=== PATIENT | male | born 1985 | race Caucasian/White ===

== ENCOUNTER 2018-07-15 19:55 | Inpatient (IN) | payer BC ==
[~2018-07-15] VITALS: Ht 180.3 cm; Wt 168.7 kg
[2018-07-15 19:56] VITALS: BP 139/91
[2018-07-15] MEDS ORDERED: IBUPROFEN 200200 M1 PO (20:00)
[2018-07-15] MEDS ORDERED: LAXATIVE (20:00)
[2018-07-15] MEDS ORDERED: [UNRECOGNIZED DRUG - REMARK] (20:01)
[2018-07-15 20:18] LABS: ICTOTEST (BILI CONFIRMATORY) Negative (Negative); URINE BILIRUBIN NEGATIVE (Negative); URINE BLOOD NEGATIVE (Negative); URINE CLARITY CLEAR; URINE COLOR YELLOW; URINE GLUCOSE-RANDOM* NEGATIVE (Negative); URINE KETONES TRACE (Negative); URINE LEUKOCYTES-REFLEX TRACE (Negative); URINE NITRITE-REFLEX NEGATIVE (Negative); URINE PROTEIN (DIPSTICK) TRACE (Negative); URINE SPECIFIC GRAVITY > 1.030 (1.005-1.035)
[2018-07-15 20:56] LABS: ABSOLUTE NEUTROPHILS 12.4 thou/uL (1.4-8.2); BASOPHILS 0.7 % (0.0-2.0); EOSINOPHILS 3.4 % (0.0-3.0); HEMATOCRIT 44.4 % (42.0-52.0); LYMPHOCYTES 12.9 % (24.0-44.0); MCH 28.4 pg (26.0-34.0); MCHC 33.8 g/dL (28.0-37.0); MCV 84.1 fL (80.0-100.0); MONOCYTES 8.6 % (1.0-8.0); PLATELET COUNT 285 thou/uL (150-400); POLYS 74.4 % (36.0-66.0); RBC 5.28 mil/uL (4.50-6.00); RDW 14.3 % (10.5-14.5); WBC 16.6 thou/uL (4.0-11.0)
[2018-07-15 21:07] LABS: CALCIUM 8.9 mg/dL (8.5-10.1); POTASSIUM 3.4 mmol/L (3.5-5.1)
[2018-07-15 21:14] LABS: ALBUMIN 3.2 g/dL (3.4-5.0); TOTAL BILIRUBIN 0.6 mg/dL (<0.1-1.0); TOTAL PROTEIN 8.2 g/dL (6.4-8.2)
--- NOTE | 2018-07-15 21:44 | NUR ---
PATIENT PLACED ON STANDING SCALE PER REQUEST OF CT. WEIGHT VERIFIED AT 371. PATIENT TO CT AT THIS TIME
--- NOTE | 2018-07-15 23:09 | NUR ---
INPATIENT WATCHMAKER APPRENTICE AT BEDSIDE DISCUSSING PLAN OF CARE. PATIENT ANXIOUS AND RESTLESS REGARDING THE IDEA OF IV PAIN MEDS. EDUCATION PROVIDED BY WATCHMAKER APPRENTICE, MYSELF AND FATHER. WILL CONTINUE TO MONITOR
--- NOTE | 2018-07-15 23:20 | NUR ---
LAB AT BEDSIDE FOR REPEAT BLOOD DRAW
--- NOTE | 2018-07-15 23:29 | NUR ---
PATIENT UP AMBULATING TO RESTROOM
[2018-07-15 23:30] VITALS: BP 133/81
[2018-07-16] VITALS (8 sets, daily range): BP systolic 112–139; BP diastolic 59–85
--- NOTE | 2018-07-16 00:31 | NUR ---
PATIENT EDUCATED AND PREPARED TO BE TRANSFERRED TO ROOM 208
--- NOTE | 2018-07-16 02:22 | NUR ---
PATIENT WAS ADMITTED TO THE FLOOR FROM ED. FAMILY MEMBER AT THE BEDSIDE. PATIENT WAS ASSESSED AND MEDS WERE GIVEN. HOURLY ROUNDING WAS DONE AND PATIENT DID APPER TO BE SLEEPING. 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 HE IS INDEPENDENT IN HIS ROOM. BED IS IN A LOW AND LOCKED POSITION.
[2018-07-16 04:27] LABS: HEMOGLOBIN 13.6 gm/dL (14.0-18.0); MCH 28.3 pg (26.0-34.0); MCV 83.4 fL (80.0-100.0); RBC 4.79 mil/uL (4.50-6.00); RDW 14.3 % (10.5-14.5); WBC 13.8 thou/uL (4.0-11.0)
[2018-07-16 04:39] LABS: CALCIUM 8.5 mg/dL (8.5-10.1); CREATININE 0.8 mg/dL (0.7-1.3); POTASSIUM 3.4 mmol/L (3.5-5.1)
--- NOTE | 2018-07-16 19:13 | NUR ---
ASSESSMENT COMPLETED AND DOCUMENTED. NO S/SX OF CARDIAC OR RESP DISTRESS. PT DID NOT WANT TO TAKE MORPHINE. PT TOLERATED CLEAR LIQUID DIET FOR LUNCH AND DINNER. PT RESTED WELL. NO COMPLAINTS VOICED. WILL CONTINUE TO MONITOR PER ORDERS.
[2018-07-17 00:45] VITALS: BP 128/79
[2018-07-17 03:30] LABS: HEMATOCRIT 39.9 % (42.0-52.0); HEMOGLOBIN 13.3 gm/dL (14.0-18.0); MCH 28.2 pg (26.0-34.0); MCHC 33.4 g/dL (28.0-37.0); MCV 84.3 fL (80.0-100.0); RBC 4.73 mil/uL (4.50-6.00)
[2018-07-17 03:52] LABS: CALCIUM 8.4 mg/dL (8.5-10.1); CREATININE 0.7 mg/dL (0.7-1.3); POTASSIUM 3.6 mmol/L (3.5-5.1)
[2018-07-17 04:45] VITALS: BP 134/80
--- NOTE | 2018-07-17 06:15 | NUR ---
ASSUME CARE 1900. PT/VITALS STABLE. INTERMITTENT ABDO PAIN. DENIES PAIN MEDS. UP AD ALIX. ASSESSMENT CHARTED. PROGRESSING WELL WITH POC. PLAN IS POSSIBLE DISCHARGE TODAY. WILL CONTINUE TO FOLLOW WITH POC
[2018-07-17 07:57] VITALS: BP 135/83
[2018-07-17 15:00] VITALS: BP 127/83
--- NOTE | 2018-07-17 15:59 | NUR ---
patient admits with diverticulitis. Sp with phys and nurisng patient employed, has health insurance. 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 Anticipate dc home tomorrow after cont to advance diet. casemgt avail if needs arise.
--- NOTE | 2018-07-17 16:07 | NUR ---
ASSESSMENT CHARTED - MEDS PER SEP - NO CO'S OF NAUSEA. PT STATES HE DOES HAVE A LITTLE ABDO PAIN DOES NOT WANT ANYTHING FOR IT. IV INFILTRATED THIS AM - ABLE TO LEAVE OUT PER DOCTOR - MEDS CHANGED TO PO. PT ADVANCED TO FULL LIQUID DIET FOR LUNCH - JERRELL WELL - WILL ADVANCE TO REG DIET FOR DINNER IF JERRELL WELL AND PAIN REMAINS CONTROLLED WILL BE ABLE TO D/C IN THE AM. NO CO'S AT THE PRESENT TIME.
[2018-07-17 20:15] VITALS: BP 126/72
[2018-07-18 04:45] VITALS: BP 133/78
--- NOTE | 2018-07-18 05:31 | NUR ---
ASSESSMENTS CHARTED. PATIENT RESTING IN ROOM DURING SHIFT. PATIENT HAD CONSTANT ABDOMINAL PAIN, BUT DID NOT WANT ANY PAIN MEDS. PLAN TO GO HOME DURING DAY.
[2018-07-18 07:50] VITALS: BP 156/106
[2018-07-18] MEDS ORDERED: METRONIDAZOLE500 M4 PO ×2 (12:15→12:16)
[2018-07-18] MEDS ORDERED: PEPCID20 MG PO ×2 (12:15→12:16)
[2018-07-18] MEDS ORDERED: AUGMENTIN 500-1 EACH PO ×2 (12:15→12:16)
[2018-07-18 12:29] VITALS: BP 156/106
--- NOTE | 2018-07-18 19:42 | NUR ---
ASSUMED CARE OF PATIENT AT 0700. PT/VITALS STABLE. COMPLAINS OF GENERALIZED LOWER ABDOMINAL PAIN, 3-4, BUT DOES NOT WANT ANY PAIN MEDICATIONS. ASSESSMENT CHARTED. PATIENT'S DIET WAS ADVANCED TO A SOFT FIBER RESTRICTED WHICH HE ATE WITHOUT ANY DIFFICULTY. WORK NOTE WAS GIVEN TO THE PATIENT TO RETURN TO WORK 07/24/18, PER DR. RODRIGUEZ. COPY OF NOTE IS IN THE CHART. THIS NURSE HAD A CONVERSATION WITH THE PATIENT ABOUT WHAT FOODS TO AVOID AND SIGNS/SYMPTOMS OF POSSIBLE RECURRING DIVERTICULITIS. THE PATIENT WAS WHEELED OUT TO THE MAIN ENTRANCE IN A WHEEL CHAIR AND DRIVEN HOME BY HIS FATHER. HE STATED THAT HE HAS ALL OF HIS BELONGINGS AND FEELS MUCH BETTER THAN HE DID ON ADMISSION.
== END 2018-07-18 13:08 | disposition home or self-care (01) | DRG 872 ==
LOC: ER 19:55 → EROBS 22:59 → 2N 22:59 → ENTRNSPT 07-18 12:51 → EDTRNSPTSTS 07-18 12:57 → 2N 07-18 13:08
PROVIDERS: Nurse Practitioner Family; Physician Assistant; ADMIT Hospitalist
DX: A41.9 Sepsis, unspecified organism (principal); K57.20 Diverticulitis of large intestine with perforation and abscess without bleeding; I10 Essential (primary) hypertension; F41.9 Anxiety disorder, unspecified; F17.210 Nicotine dependence, cigarettes, uncomplicated; E66.01 Morbid (severe) obesity due to excess calories; K76.0 Fatty (change of) liver, not elsewhere classified; Z79.899 Other long term (current) drug therapy; Z80.0 Family history of malignant neoplasm of digestive organs; Z68.42 Body mass index [BMI] 45.0-49.9, adult
CPT/HCPCS: 10797

== ENCOUNTER 2018-11-07 13:20 | Inpatient (IN) | payer BC ==
[~2018-11-07] VITALS: Ht 182.9 cm; Wt 163.3 kg
[2018-11-07 13:20] VITALS: BP 119/81
[~2018-11-07 13:20] MED LIST: AUGMENTIN 500-1 EACH PO; IBUPROFEN 200200 M1 PO; LAXATIVE; LISINOPRIL-HCT1 EACH PO; METRONIDAZOLE500 M4 PO; PEPCID20 MG PO; [UNRECOGNIZED DRUG - REMARK]
[2018-11-07 13:39] LABS: URINE BLOOD NEGATIVE (Negative); URINE CLARITY CLEAR; URINE COLOR YELLOW; URINE GLUCOSE-RANDOM* NEGATIVE (Negative); URINE KETONES TRACE (Negative); URINE LEUKOCYTES-REFLEX NEGATIVE (Negative); URINE NITRITE-REFLEX NEGATIVE (Negative); URINE PROTEIN (DIPSTICK) 2+ (Negative); URINE SPECIFIC GRAVITY >= 1.030 (1.005-1.035); URINE UROBILINOGEN 0.2 E.U./dl (0.2-1.0)
[2018-11-07 13:49] LABS: ABSOLUTE NEUTROPHILS 8.4 thou/uL (1.4-8.2); HEMATOCRIT 46.3 % (42.0-52.0); HEMOGLOBIN 15.7 gm/dL (14.0-18.0); MCH 28.7 pg (26.0-34.0); MCHC 33.8 g/dL (28.0-37.0); MCV 84.9 fL (80.0-100.0); MONOCYTES 6.4 % (1.0-8.0); PLATELET COUNT 268 thou/uL (150-400); POLYS 67.6 % (36.0-66.0); RBC 5.45 mil/uL (4.50-6.00); RDW 14.5 % (10.5-14.5); WBC 12.4 thou/uL (4.0-11.0)
[2018-11-07 14:00] LABS: CALCIUM 9.5 mg/dL (8.5-10.1); POTASSIUM 3.9 mmol/L (3.5-5.1)
[2018-11-07 14:07] LABS: ALBUMIN 3.7 g/dL (3.4-5.0); TOTAL BILIRUBIN 0.4 mg/dL (<0.1-1.0); TOTAL PROTEIN 8.2 g/dL (6.4-8.2)
[2018-11-07 14:08] LABS: ICTOTEST (BILI CONFIRMATORY) Negative (Negative); URINE BILIRUBIN NEGATIVE (Negative)
[2018-11-07 15:13] VITALS: BP 142/75
[2018-11-07 16:54] VITALS: BP 123/76
[2018-11-07] MEDS ORDERED: WAL-PROFEN200 MG (16:59)
--- NOTE | 2018-11-07 18:30 | NUR ---
PT RECIEVED FROM THE ER AT 1600 ALERT AND IN NO ACUTE DISTRESS. PT W/ REPEAT DIVERTICULITIS FROM LAST JUL. DR. CLARK CONSULTED AND SAW PT. PT ON CLEARS BUT MAY ADVANCE IF NO PAIN.
[2018-11-07 19:45] VITALS: BP 128/81
[2018-11-08 03:50] VITALS: BP 127/76
--- NOTE | 2018-11-08 04:20 | NUR ---
Assumed care of pt at 1900. Pt alert and oriented x4. Up ad subha. Pain controlled with prn pain meds. IVF and IV antibiotics infusing. 1 BM overnight. Call light within reach. Will continue to monitor.
[2018-11-08 06:05] LABS: HEMATOCRIT 41.9 % (42.0-52.0); MCH 28.9 pg (26.0-34.0); MCHC 33.3 g/dL (28.0-37.0); MCV 86.6 fL (80.0-100.0); RBC 4.84 mil/uL (4.50-6.00); RDW 14.7 % (10.5-14.5); WBC 9.5 thou/uL (4.0-11.0)
[2018-11-08 08:14] VITALS: BP 134/77
--- NOTE | 2018-11-08 15:52 | NUR ---
Assumed pt care at 7am.Pt in bed most of the time and able to repositioned self as needed.Assessment completed.vss.Pt c/o generalized abdominal pain and pain med given as ordered.Dr Richey here,order noted.Family in room most of the time today.Will continiue to monitor.
[2018-11-08 17:28] VITALS: BP 138/75
[2018-11-08 19:15] VITALS: BP 149/94
[2018-11-09 04:03] VITALS: BP 145/92
[2018-11-09 07:40] VITALS: BP 133/89
--- NOTE | 2018-11-09 08:00 | NUR ---
ASSUMED CARE @ 19:15. A&OX4 REPORTS LAST BM ON SUNDAY. FSBS 89, NO S/S GIVEN. VS STABLE .DENIED NEED FOR PAIN MEDS. WILL CONTINUE TO MONITOR.
[2018-11-09 15:30] VITALS: BP 135/79
--- NOTE | 2018-11-09 16:08 | NUR ---
PT A&OX4, AMBULATES SELF. IV INTACT IN L FA. TOLERATED SOFT DIET FOR LUNCH WELL. DENIES N/V, DID HAVE L LOWER QUAD PAIN, RECIEVED PO PAIN MED. WILL CONT POC.
[2018-11-09 19:38] VITALS: BP 137/75
[2018-11-10 04:29] VITALS: BP 145/90
--- NOTE | 2018-11-10 04:43 | NUR ---
PT AMBULATING TO BATHROOM INDEPENDENTLY AND IS TOLERATING WELL. LORTAB PROVIDING PAIN RELIEF. DENIES NAUSEA. PLAN IS FOR DISCHARGE HOME 11/10. RESTING COMFORTABLY. NO NEEDS VOICED. CALL LIGHT WITHIN REACH. WILL CONTINUE TO PROVIDE FREQUENT OBSERVATION.
[2018-11-10 06:55] LABS: HEMATOCRIT 44.7 % (42.0-52.0); HEMOGLOBIN 14.5 gm/dL (14.0-18.0); MCH 28.5 pg (26.0-34.0); MCHC 32.3 g/dL (28.0-37.0); MCV 88.2 fL (80.0-100.0); RBC 5.07 mil/uL (4.50-6.00); RDW 14.3 % (10.5-14.5); WBC 9.2 thou/uL (4.0-11.0)
[2018-11-10 07:12] VITALS: BP 136/92
[2018-11-10] MEDS ORDERED: MIRALAX17 GM PO (09:49)
[2018-11-10] MEDS ORDERED: AUGMENTIN 875-1 EACH PO (09:49)
[2018-11-10] MEDS ORDERED: HYDROCODON-ACE1 EAC7 PO (09:49)
[2018-11-10] MEDS ORDERED: METFORMIN HCL500 MG PO (09:52)
[2018-11-10 11:21] VITALS: BP 136/92
[2018-11-10 11:25] VITALS: BP 136/92
--- NOTE | 2018-11-10 11:48 | NUR ---
DC ORDERS RECIEVED, IV REMOVED FROM L HAND, F/U APPOINT. AND SCRIPTS REVIEWED WITH PT, PT AND FATHER WALKED THEMSELVES OUT TO MAIN ENTRANCE.
== END 2018-11-10 12:23 | disposition home or self-care (01) | DRG 392 ==
LOC: ER 13:20 → EROBS 15:12 → 4E 15:12
PROVIDERS: Nurse Practitioner Family; ADMIT Hospitalist
DX: K57.32 Diverticulitis of large intestine without perforation or abscess without bleeding (principal); Z68.42 Body mass index [BMI] 45.0-49.9, adult; I10 Essential (primary) hypertension; K21.9 Gastro-esophageal reflux disease without esophagitis; F41.9 Anxiety disorder, unspecified; F17.210 Nicotine dependence, cigarettes, uncomplicated; E74.39 Other disorders of intestinal carbohydrate absorption; R73.9 Hyperglycemia, unspecified; E66.01 Morbid (severe) obesity due to excess calories; Z79.899 Other long term (current) drug therapy; Z88.1 Allergy status to other antibiotic agents; Z80.0 Family history of malignant neoplasm of digestive organs
CPT/HCPCS: 10084

== ENCOUNTER 2019-06-20 02:09 | Inpatient (IN) | payer BC ==
[2019-06-20] VITALS (8 sets, daily range): BP systolic 97–153; BP diastolic 54–81
[~2019-06-20] VITALS: Ht 180.3 cm; Wt 167.8 kg
[~2019-06-20 02:09] MED LIST changes: +AUGMENTIN 875-1 EACH PO; +HYDROCODON-ACE1 EAC7 PO; +METFORMIN HCL500 MG PO; +MIRALAX17 GM PO; +WAL-PROFEN200 MG
[2019-06-20 02:37] LABS: ABSOLUTE NEUTROPHILS 13.5 thou/uL (1.4-8.2); BASOPHILS 1.3 % (0.0-2.0); EOSINOPHILS 0.4 % (0.0-3.0); HEMATOCRIT 40.6 % (42.0-52.0); HEMOGLOBIN 13.7 gm/dL (14.0-18.0); LYMPHOCYTES 11.2 % (24.0-44.0); MCH 28.8 pg (26.0-34.0); MCHC 33.8 g/dL (28.0-37.0); MCV 85.4 fL (80.0-100.0); MONOCYTES 9.4 % (1.0-8.0); PLATELET COUNT 285 thou/uL (150-400); POLYS 77.7 % (36.0-66.0); RBC 4.75 mil/uL (4.50-6.00); RDW 13.5 % (10.5-14.5); WBC 17.3 thou/uL (4.0-11.0)
[2019-06-20 02:50] LABS: CALCIUM 9.1 mg/dL (8.5-10.1); CREATININE 1.1 mg/dL (0.7-1.3); POTASSIUM 3.7 mmol/L (3.5-5.1)
[2019-06-20 02:56] LABS: ALBUMIN 3.7 g/dL (3.4-5.0); TOTAL BILIRUBIN 0.5 mg/dL (<0.1-1.0)
[2019-06-20 03:26] LABS: URINE BILIRUBIN NEGATIVE (Negative); URINE BLOOD NEGATIVE (Negative); URINE CLARITY SL CLOUDY; URINE COLOR YELLOW; URINE GLUCOSE-RANDOM* NEGATIVE (Negative); URINE KETONES NEGATIVE (Negative); URINE LEUKOCYTES-REFLEX 1+ (Negative); URINE NITRITE-REFLEX NEGATIVE (Negative); URINE PROTEIN (DIPSTICK) NEGATIVE (Negative); URINE SPECIFIC GRAVITY >= 1.030 (1.005-1.035); URINE UROBILINOGEN 0.2 E.U./dl (0.2-1.0)
[2019-06-20 03:34] LABS: BACTERIA-REFLEX >30 Many /HPF (None Seen); CASTS None Seen /LPF (None Seen); CRYSTALS None Seen /LPF (None Seen); MUCUS 0-3 Light strn/LPF (None Seen); SQUAMOUS 0-3 Few /LPF (0-3); URINE RBC 0-2 Rare /HPF (0-2)
--- NOTE | 2019-06-20 11:00 | NUR ---
Received awake on bed. Due medications given as prescribed. On nothing per orem, ice chips offered. Vital signs stable. On room air. Up ad subha. With SL at L FA- intact. Admission history and education done by maintenance supervisor 2nd shift, continued pt's admission assessment- charted. Pt seen by INDUSTRIAL COFFEE GRINDER Elzbieta. Pt can have clear liquids- broth and apple juice given, tolerated well, no nauea and no vomiting noted. Complained of abdominal pain, due PRN pain meds given as prescribed. IVF of NS at 100cc/hr, started on his L FA. With surgery consult to Dr Rivera- US called. Assisted in ADLs.
--- NOTE | 2019-06-20 14:58 | NUR ---
PT ADMITTED WITH DIVERTICULITIS, SPSIS, AND UTI. CM SPOKE WITH PHYSICAIN AND NURSING. PT IS EMPLOYED AND INSURED. 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 CARE TEAM INDICATE FOLLOW UP FOR PITPATIENT COLONOSCOPY AND PARTIAL COLECTOMY. CM TO FOLLOW SHOULD ANY NEEDS ARISE.
--- NOTE | 2019-06-21 05:00 | NUR ---
PATIENT AOX4 MAKES NEEDS KNOWN. PATIENT IS UP AT ALIX. PATIENT CALM AND COOPERATIVE WITH MEDS AND CARE. PAIN CONTROLLED THIS SHIFT.PATIENT ON CLEAR LIQUIDS AND TOLERATED WELL. PATIENT IN BED ASLEEP AT THIS TIME BREATHING REGULAR AND UNLABOURED.
[2019-06-21 08:03] VITALS: BP 116/75
--- NOTE | 2019-06-21 11:53 | NUR ---
Received awake on bed. Due medications given as prescribed. On room air. Vital signs stable. Up ad subha, independent with ADLs. Able to have a bowel movement this AM. On clear liquids, tolerating well; no nausea and no vomiting noted. With NS at 100cc/hr, infusing well at L FA. Pt seen by Dr Hernandez this AM- pt requested to have regular diet, order placed and Dr Hernandez informed.
[2019-06-21 14:16] VITALS: BP 137/71
[2019-06-21 19:00] VITALS: BP 157/73
--- NOTE | 2019-06-22 03:49 | NUR ---
PATIENT AOX4 MAKES NEEDS KNOWN. PATIENT IS UP AT ALIX. PAIN CONTROLLED THIS SHIFT. PATIENT ATE REGULAR FOOD THIS SHIFT AND TOLERATED WELL. PATIENT IN BED ASLEEP AT THIS TIME BREATHING REGULAR AND UNLABOURED.
[2019-06-22 05:15] LABS: HEMATOCRIT 38.1 % (42.0-52.0); HEMOGLOBIN 12.5 gm/dL (14.0-18.0); MCH 28.6 pg (26.0-34.0); MCHC 32.7 g/dL (28.0-37.0); MCV 87.4 fL (80.0-100.0); RBC 4.36 mil/uL (4.50-6.00); RDW 13.4 % (10.5-14.5); WBC 8.7 thou/uL (4.0-11.0)
[2019-06-22 08:00] VITALS: BP 132/80
[2019-06-22] MEDS ORDERED: AUGMENTIN 875-1 EACH PO (08:11)
[2019-06-22] MEDS ORDERED: NORCO 5-325 TA1 EAC1 PO (08:11)
[2019-06-22 10:27] VITALS: BP 132/80
--- NOTE | 2019-06-22 10:55 | NUR ---
Assumed patient care at 0715. Patient's vital signs have been stable, he denies pain. He is currently completely his last dose of IV Antibiotic without adverse reactions. Discharge Instructions and medication education provided to patient; he verbalizes an understanding. Patient is currently waiting on a ride home from a friend.
--- NOTE | 2019-06-22 11:35 | NUR ---
Patient Discharged at this time. He declined the offer to be pushed in a wheelchair, ambulated with PRESS HAND SUPERVISOR to Main Entrance. Patient left with his cell phone and clothing that he arrived in.
== END 2019-06-22 12:00 | disposition home or self-care (01) | DRG 872 ==
LOC: ER 02:09 → 4W 05:09 → EROBS 05:09 → 4W 06:15
PROVIDERS: Emergency Medicine; Hospitalist; ADMIT Hospitalist
DX: A41.9 Sepsis, unspecified organism (principal); N39.0 Urinary tract infection, site not specified; K57.32 Diverticulitis of large intestine without perforation or abscess without bleeding; I10 Essential (primary) hypertension; F41.9 Anxiety disorder, unspecified; K21.9 Gastro-esophageal reflux disease without esophagitis; E66.01 Morbid (severe) obesity due to excess calories; Z71.6 Tobacco abuse counseling; Z80.0 Family history of malignant neoplasm of digestive organs; Z68.43 Body mass index [BMI] 50.0-59.9, adult; Z88.1 Allergy status to other antibiotic agents; Z80.51 Family history of malignant neoplasm of kidney; Z79.899 Other long term (current) drug therapy
CPT/HCPCS: 10040

== ENCOUNTER 2020-01-06 19:00 | Emergency (ER) | payer BC ==
[~2020-01-06] VITALS: Ht 182.9 cm; Wt 171.5 kg
[~2020-01-06 19:00] MED LIST changes: +NORCO 5-325 TA1 EAC1 PO
[2020-01-06] MEDS ORDERED: NORCO 5-325 TA1 EAC1 PO (20:43)
[2020-01-06] MEDS ORDERED: LIDOCAINE PAIN1 EACH TRANSDERM (20:43)
[2020-01-06 21:02] VITALS: BP 152/92
--- NOTE | 2020-01-07 07:44 | EKG ---
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
== END 2020-01-06 21:03 | disposition home or self-care (01) ==
LOC: ER 19:00
DX: S20.212A Contusion of left front wall of thorax, initial encounter (principal); I10 Essential (primary) hypertension; K21.9 Gastro-esophageal reflux disease without esophagitis; F41.9 Anxiety disorder, unspecified; F17.210 Nicotine dependence, cigarettes, uncomplicated; Z79.899 Other long term (current) drug therapy; Z88.1 Allergy status to other antibiotic agents; X50.1XXA Overexertion from prolonged static or awkward postures, initial encounter; Y93.89 Activity, other specified; Y92.098 Other place in other non-institutional residence as the place of occurrence of the external cause; Y99.8 Other external cause status

== ENCOUNTER 2020-02-27 13:50 | Emergency (ER) | payer BC ==
[~2020-02-27] VITALS: Ht 180.3 cm; Wt 171.5 kg
[~2020-02-27 13:50] MED LIST changes: +LIDOCAINE PAIN1 EACH TRANSDERM
[2020-02-27 15:05] LABS: ABSOLUTE NEUTROPHILS 8.5 thou/uL (1.4-8.2); EOSINOPHILS 1.5 % (0.0-3.0); HEMOGLOBIN 13.7 gm/dL (14.0-18.0); LYMPHOCYTES 13.6 % (24.0-44.0); MCH 28.4 pg (26.0-34.0); MCHC 33.4 g/dL (28.0-37.0); MONOCYTES 9.2 % (1.0-8.0); PLATELET COUNT 265 thou/uL (150-400); POLYS 74.7 % (36.0-66.0); RBC 4.82 mil/uL (4.50-6.00); RDW 14.4 % (10.5-14.5); WBC 11.4 thou/uL (4.0-11.0)
[2020-02-27 15:23] LABS: CALCIUM 8.9 mg/dL (8.5-10.1); CREATININE 0.9 mg/dL (0.7-1.3); POTASSIUM 3.9 mmol/L (3.5-5.1)
[2020-02-27 15:29] LABS: ALBUMIN 3.6 g/dL (3.4-5.0); TOTAL BILIRUBIN 0.2 mg/dL (0.2-1.0); TOTAL PROTEIN 7.6 g/dL (6.4-8.2)
[2020-02-27 16:07] LABS: URINE BILIRUBIN NEGATIVE (Negative); URINE BLOOD NEGATIVE (Negative); URINE CLARITY CLEAR; URINE COLOR YELLOW; URINE GLUCOSE-RANDOM* NEGATIVE (Negative); URINE KETONES NEGATIVE (Negative); URINE LEUKOCYTES-REFLEX NEGATIVE (Negative); URINE NITRITE-REFLEX NEGATIVE (Negative); URINE PROTEIN (DIPSTICK) NEGATIVE (Negative); URINE SPECIFIC GRAVITY >= 1.030 (1.005-1.035); URINE UROBILINOGEN 0.2 E.U./dl (0.2-1.0)
[2020-02-27] MEDS ORDERED: NORCO 5-325 TA1 EAC2 PO (18:00)
[2020-02-27] MEDS ORDERED: ZOFRAN ODT4 MG DISSOLVE (18:00)
[2020-02-27] MEDS ORDERED: AUGMENTIN 875-1 EACH PO (18:00)
[2020-02-27 18:23] VITALS: BP 127/64
== END 2020-02-27 18:25 | disposition home or self-care (01) ==
LOC: ER 13:50
PROVIDERS: Emergency Medicine; Physician Assistant
DX: K57.32 Diverticulitis of large intestine without perforation or abscess without bleeding (principal); R10.84 Generalized abdominal pain; F17.210 Nicotine dependence, cigarettes, uncomplicated; I10 Essential (primary) hypertension; K21.9 Gastro-esophageal reflux disease without esophagitis; Z88.1 Allergy status to other antibiotic agents; Z79.899 Other long term (current) drug therapy

== ENCOUNTER 2020-07-31 17:22 | Inpatient (IN) | payer BC ==
[~2020-07-31] VITALS: Ht 182.9 cm; Wt 172.4 kg
[~2020-07-31 17:22] MED LIST changes: +NORCO 5-325 TA1 EAC2 PO; +ZOFRAN ODT4 MG DISSOLVE
[2020-07-31 17:26] VITALS: BP 150/95
[2020-07-31 17:51] LABS: ABSOLUTE NEUTROPHILS 5.9 thou/uL (1.4-8.2); BASOPHILS 0.4 % (0.0-2.0); EOSINOPHILS 1.6 % (0.0-3.0); HEMATOCRIT 42.8 % (42.0-52.0); HEMOGLOBIN 14.2 gm/dL (14.0-18.0); LYMPHOCYTES 22.6 % (24.0-44.0); MCH 28.1 pg (26.0-34.0); MCHC 33.1 g/dL (28.0-37.0); MCV 84.9 fL (80.0-100.0); MONOCYTES 9.3 % (1.0-8.0); PLATELET COUNT 294 thou/uL (150-400); POLYS 66.1 % (36.0-66.0); RBC 5.04 mil/uL (4.50-6.00); RDW 14.2 % (10.5-14.5); WBC 8.9 thou/uL (4.0-11.0)
[2020-07-31 18:02] LABS: CALCIUM 9.1 mg/dL (8.5-10.1); POTASSIUM 3.9 mmol/L (3.5-5.1)
[2020-07-31 18:08] LABS: ALBUMIN 3.7 g/dL (3.4-5.0); TOTAL BILIRUBIN 0.5 mg/dL (0.2-1.0); TOTAL PROTEIN 7.8 g/dL (6.4-8.2)
[2020-07-31 20:33] VITALS: BP 116/77
--- NOTE | 2020-07-31 20:34 | NUR ---
HANDOFF SENT TO 4TH FLOOR
[2020-07-31 21:31] LABS: URINE BILIRUBIN NEGATIVE (Negative); URINE BLOOD NEGATIVE (Negative); URINE CLARITY CLEAR; URINE COLOR YELLOW; URINE GLUCOSE-RANDOM* NEGATIVE (Negative); URINE KETONES NEGATIVE (Negative); URINE LEUKOCYTES-REFLEX NEGATIVE (Negative); URINE NITRITE-REFLEX NEGATIVE (Negative); URINE PROTEIN (DIPSTICK) NEGATIVE (Negative); URINE UROBILINOGEN 0.2 E.U./dl (0.2-1.0)
[2020-07-31 21:54] VITALS: BP 116/77
[2020-07-31 22:28] VITALS: BP 115/69
[2020-08-01 06:25] LABS: HEMATOCRIT 40.5 % (42.0-52.0); MCH 27.7 pg (26.0-34.0); MCHC 32.1 g/dL (28.0-37.0); MCV 86.5 fL (80.0-100.0); RBC 4.68 mil/uL (4.50-6.00); RDW 14.6 % (10.5-14.5); WBC 7.9 thou/uL (4.0-11.0)
[2020-08-01 06:33] LABS: CALCIUM 8.7 mg/dL (8.5-10.1); CREATININE 0.9 mg/dL (0.7-1.3); MAGNESIUM 2.3 mg/dL (1.8-2.4); POTASSIUM 3.9 mmol/L (3.5-5.1)
[2020-08-01 07:40] VITALS: BP 109/79
--- NOTE | 2020-08-01 07:46 | NUR ---
RECIEVED PATIENT FROM ED AT 2155 ACCOMPANIED BY ED PERSONEL. PATIENT ALERT AND ORIENTED X4. UP AD ALIX. C/O PAIN, MED GIVEN. SLEPT OFF AND ON DURING SHIFT. ABD OBESE, SOFT AND ROUND WITH POSITIVE BS.
--- NOTE | 2020-08-01 13:43 | NUR ---
PT CARE ASSUMED AT 0700, PT ALERT AND ORIENTED X4, DENIES ANY NAUSEA AND VOMITTING. PT CONTINUES TO HAVE ABDOMINAL PAIN, PAIN MED GIVEN PER ORDER. UP AD ALIX TO THE BATHROOM. DENIES ANY NEEDS AT THE MOMENT. WILL COTNINUE TO MONITOR.
[2020-08-01 15:46] VITALS: BP 120/72
[2020-08-01 19:55] VITALS: BP 145/72
[2020-08-02 04:06] LABS: GLYCOHEMOGLOBIN (HGB A1C) 6.4 % (4.8-5.6)
[2020-08-02 04:44] VITALS: BP 140/77
[2020-08-02 05:27] LABS: HEMATOCRIT 41.8 % (42.0-52.0); HEMOGLOBIN 13.6 gm/dL (14.0-18.0); MCH 28.2 pg (26.0-34.0); MCHC 32.6 g/dL (28.0-37.0); MCV 86.6 fL (80.0-100.0); RBC 4.83 mil/uL (4.50-6.00); RDW 14.2 % (10.5-14.5); WBC 6.4 thou/uL (4.0-11.0)
--- NOTE | 2020-08-02 08:13 | NUR ---
PT AMBULATING IN ROOM INDEPENDENTLY AND IS TOLERATING WELL. MORPHINE PROVIDING PAIN RELIEF. RESTING COMFORTABLY. NO NEEDS VOICED. CALL LIGHT WITHIN REACH. FREQUENT OBSERVATION.
[2020-08-02 09:57] VITALS: BP 140/77
--- NOTE | 2020-08-02 10:40 | NUR ---
PT ALERT AND ORIENTED X 3. INDEPENDENT WITH GAIT. NO COMPLAINTS OF PAIN. NO N/V. PATIENT IS READY TO EAT AND GO HOME. DISCHARGE ORDERS HAVE BEEN PUT IN. INSTRUCTIONS GIVEN. WILL CONTINUE TO MONITOR UNTIL PATIENT DISCHARGES.
[2020-08-02 10:58] VITALS: BP 140/77
--- NOTE | 2020-08-02 11:00 | NUR ---
PATIENT DISCHARGED AT 1058. SON HERE TO TAKE PATIENT HOME. DISCHARGE INSTRUCTIONS GIVEN. PATIENT VERBALIZED UNDERSTANDING.
== END 2020-08-02 11:25 | disposition home or self-care (01) | DRG 392 ==
LOC: ER 17:22 → EROBS 20:23 → 4S 20:23
PROVIDERS: Nurse Practitioner Family; Physician Assistant; ADMIT Hospitalist; ATTEND Hospitalist
DX: K57.32 Diverticulitis of large intestine without perforation or abscess without bleeding (principal); Z68.43 Body mass index [BMI] 50.0-59.9, adult; I10 Essential (primary) hypertension; F41.9 Anxiety disorder, unspecified; K21.9 Gastro-esophageal reflux disease without esophagitis; E66.01 Morbid (severe) obesity due to excess calories; F32.9 Major depressive disorder, single episode, unspecified; F17.200 Nicotine dependence, unspecified, uncomplicated; R73.9 Hyperglycemia, unspecified; Z86.16 Personal history of COVID-19; Z20.822 Contact with and (suspected) exposure to COVID-19; Z88.1 Allergy status to other antibiotic agents; Z79.899 Other long term (current) drug therapy
CPT/HCPCS: 10195